=== PATIENT | female | born 1990 | race Caucasian/White ===

== ENCOUNTER → 2016-06-05 | Outpatient (CLI) | payer OTHER ==
[~2016-06-05] MED LIST: IBUP-232 PO
== END ==
LOC: CLAB 07:03
PROVIDERS: ATTEND Obstetrics & Gynecology
DX: Z34.83 Encounter for supervision of other normal pregnancy, third trimester (principal)
CPT/HCPCS: 36415; 86850; 86900; 86901; 96372; J2790; 90384

== ENCOUNTER 2016-07-22 12:43 | Emergency (ER) | payer OTHER ==
--- NOTE | 2016-07-22 14:04 | PD ---
HPI Chief Complaint Leakage of fluid Date Seen: Jul 22, 2016 Travel History International Travel<30 Days: No Contact w/Intl Traveler<30Days: No Known Affected Area: No History of Present Illness HPI G1 at 35w 1d presents with c/o LOF last night. Reports fluid as clear. Denies ctxs/VB. Reports good FM. Denies problems this . Para: 0 : 1 History Past Medical History Medical History: Denies Significant Hx Past Surgical History Surgical History: No Previous Surgery Family History Family History: Negative Social History Alcohol Use: No Tobacco Use: No Substance Abuse: No Allergies-Medications (Allergen,Severity, Reaction): Coded Allergies: No Known Allergies (Unverified , 07/22/16) Comments NKDA Physical Exam Narrative GENERAL: Well-nourished, well-developed patient. SKIN: Warm and dry. HEAD: Normocephalic and atraumatic. EYES: No scleral icterus. No injection or drainage. ENT: No nasal drainage noted. Mucous membranes pink. Airway patent. NECK: Supple, trachea midline. No JVD. CARDIOVASCULAR: Regular rate and rhythm without murmurs, gallops, or rubs. RESPIRATORY: Breath sounds equal bilaterally. No accessory muscle use. BREASTS: Bilateral exam showed no masses , no retractions, no nipple discharge. ABDOMEN/GI: Abdomen soft, non-tender, bowel sounds present, no rebound, no guarding Gravid to [-] weeks size Fundal Height: [-] GENITOURINARY: External Genitalia: intact and normal in appearance BUS glands: [-] Cervix: [-] Dilatation: [1cm int, 2 cm ext] Effacement: [50] Station: [3] Presentation: [-] Membranes: [intact or ruptured] Uterine Contractions: [none] FHT's: Category: [1] Baseline: [130s] Reactive: [reactive] Variability: [moderate] Decels: [none] EXTREMITIES: No cyanosis or edema. BACK: Nontender without obvious deformity. No CVA tenderness. NEUROLOGICAL: Awake and alert. Motor and sensory grossly within normal limits. Five out of 5 muscle strength in all muscle groups. Normal speech. Data Data Vital Signs Reviewed: Yes Orders UA- large LE, negative for blood/nitrites Urinalysis - C+S If Indicated (07/22/16 13:46) Labs AmniSure negative per RN MDM Interpretation(s) IUP at 35w 1d Plan Will d/c home. Labor precautions given. Keep f/u with OB provider as scheduled. Disposition: 01 DISCHARGE HOME Condition: Good Gayle Fairchild MD Jul 22, 2016 14:04
[2016-07-22 14:26] LABS: BACTERIA, URINE RARE /hpf; BLOOD, URINE NEG (NEG); COMMENT (UR) CULT NOT INDICATED; CULTURE IF INDICATED CULT NOT INDICATED; GLUCOSE,URINE NEG (NEG); KETONE, URINE NEG (NEG); MUCUS URINE FEW /lpf (OCC); NITRITE,URINE NEG (NEG); PH, URINE 6.5 (5.0-8.5); SQUAMOUS EPITHELIAL CELL URINE 7 /hpf (0-5); URINE COLOR YELLOW (YELLW/STRAW)
--- NOTE | 2016-07-22 16:21 | PD ---
HPI Travel History International Travel<30 Days: No Contact w/Intl Traveler<30Days: No Known Affected Area: No History of Present Illness HPI G1 at 35w 1d presents with c/o LOF last night. Reports fluid as clear. Denies ctxs/VB. Reports good FM. Denies problems this . History Past Medical History Medical History: Denies Significant Hx Past Surgical History Surgical History: No Previous Surgery Family History Family History: Negative Social History Alcohol Use: No Tobacco Use: No Substance Abuse: No Allergies-Medications (Allergen,Severity, Reaction): Coded Allergies: No Known Allergies (Unverified , 07/22/16) Physical Exam Narrative GENERAL: Well-nourished, well-developed patient. SKIN: Warm and dry. HEAD: Normocephalic and atraumatic. EYES: No scleral icterus. No injection or drainage. ENT: No nasal drainage noted. Mucous membranes pink. Airway patent. NECK: Supple, trachea midline. No JVD. CARDIOVASCULAR: Regular rate and rhythm without murmurs, gallops, or rubs. RESPIRATORY: Breath sounds equal bilaterally. No accessory muscle use. BREASTS: Bilateral exam showed no masses , no retractions, no nipple discharge. ABDOMEN/GI: Abdomen soft, non-tender, bowel sounds present, no rebound, no guarding Gravid to [-] weeks size Fundal Height: [-] GENITOURINARY: External Genitalia: intact and normal in appearance BUS glands: [-] Cervix: [-] Dilatation: [1 int/2 ext] Effacement: [50] Station: [3] Presentation: [-] Membranes: [intact or ruptured] Uterine Contractions: [-] FHT's: Category: [1] Baseline: [130s] Reactive: [reactive] Variability: [moderate] Decels: [none] EXTREMITIES: No cyanosis or edema. BACK: Nontender without obvious deformity. No CVA tenderness. NEUROLOGICAL: Awake and alert. Motor and sensory grossly within normal limits. Five out of 5 muscle strength in all muscle groups. Normal speech. Data Data Orders Urinalysis - C+S If Indicated (07/22/16 13:46) Labs Laboratory Tests Test 07/22/16 13:16 Urine Color YELLOW Urine Turbidity HAZY Urine pH 6.5 Urine Specific [place] 1.011 Urine Protein NEG Urine Glucose (UA) NEG Urine Ketones NEG Urine Occult Blood NEG Urine Nitrite NEG Urine Bilirubin NEG Urine Urobilinogen LESS THAN 2.0 Urine Leukocyte Esterase LARGE Urine RBC 2 Urine WBC 7 Urine Squamous Epithelial 7 Cells Urine Bacteria RARE Urine Mucus FEW Microscopic Urinalysis Comment CULT NOT INDICATED MDM Interpretation(s) IUP at 35w 1d Plan Will d/c home with labor precautions. Keep f/u with OB provider. Diagnosis Diagnosis: Primary Impression: 35 weeks gestation of Additional Impressions: No leakage of amniotic fluid into vagina False labor before 37 completed weeks of gestation Disposition: 01 DISCHARGE HOME Condition: Good Patient Instructions: General Instructions, at 35 to 38 Weeks (ED) Departure Forms: Tests/Procedures Gayle Fairchild MD Jul 22, 2016 16:21
== END 2016-07-22 15:15 | disposition home or self-care (01) ==
LOC: HOBED 12:43
DX: O47.03 False labor before 37 completed weeks of gestation, third trimester (principal); Z3A.35 35 weeks gestation of pregnancy
CPT/HCPCS: 59025; 81001; 84112

== ENCOUNTER 2016-07-29 20:40 | Inpatient (IN) | payer OTHER ==
--- NOTE | 2016-07-29 21:49 | PD ---
HPI Chief Complaint yellow discharge, low back pain, and decreased movement Date Seen: Jul 29, 2016 Time Seen: 21:30 Travel History International Travel<30 Days: No Contact w/Intl Traveler<30Days: No Known Affected Area: No History of Present Illness HPI Pt is a 25 y/o G1 with IUP at 36.1 weeks who presents with c/o yellowish watery discharge since this am, enough to get underwear wet, but no large gushes. Also c/o lower back pain (constant, 3/10) with intermittent radiation to right side of abdomen. Pt also noted decreased movement today. pt has felt some fluttery movement, but less active than normal. Pt unsure if her ab pain is contractions. She denies vb. Para: 0 : 1 History Past Medical History Medical History: Denies Significant Hx Obstetric History Obstetric History G1 Past Surgical History Narrative Surgical LEEP Family History Family History: Negative Social History Alcohol Use: No Tobacco Use: No Substance Abuse: No Allergies-Medications (Allergen,Severity, Reaction): Coded Allergies: No Known Allergies (Unverified , 07/22/16) Narrative Medication PNV Review of Systems General / Constitutional: No: Fever, Weight Gain, Weight Loss, Chills, Other Eyes: No: Diploplia, Blurred Vision, Visual changes, Pain, Photophobia, Other HENT: No: Headaches, Vertigo, Dental Difficulties, Lightheadedness, Other Cardiovascular: No: Irregular Rhythm, Chest Pain or Discomfort, Palpitations, Tachycardia, Syncope, Varicosities, Edema, Cyanosis, Other Respiratory: No: Cough, Short of Breath, Wheezing, Other Gastrointestinal: No: Nausea, Vomiting, Diarrhea, Abdominal Pain, Hematemesis, Hematochezia, Constipation, Changes in Bowel Habits, Indigestion, Loss of Appetite, Other Genitourinary: No: Urgency, Frequency, Dysuria, Nocturia, Hematuria, Decreased Urinary Output, Oliguria, Hesitancy, Dribbling, Incontinence, Pelvic Pain, Dyspareunia, Discharge, Menorrhagia, Vaginal Bleeding, Other Musculoskeletal: No: Limited ROM, Weakness, Cramping, Edema, Pain, Other Neurologic: No: Weakness, Dizziness, Syncope, Focal Abnormalities, Coordination Problem, Headache, Slurred Speech, Seizures, Other Psychiatric: No: Anxiety, Depression, Suicidal Ideations, Disorder of Thought, Mood Disorder, Substance Abuse, Homicidal Ideation, Other Endocrine: No: Heat Intolerance, Cold Intolerance, Polydipsia, Polyuria, Other Hematologic/Lymphatic: No Easy Bruising, No Lymph Node Enlargement, No Other Physical Exam 133/88, 83, 18, 98.0 Narrative GENERAL: Well-nourished, well-developed patient. SKIN: Warm and dry. HEAD: Normocephalic and atraumatic. EYES: No scleral icterus. No injection or drainage. ENT: No nasal drainage noted. Mucous membranes pink. Airway patent. NECK: Supple, trachea midline. No JVD. CARDIOVASCULAR: Regular rate and rhythm without murmurs, gallops, or rubs. RESPIRATORY: Breath sounds equal bilaterally. No accessory muscle use. ABDOMEN/GI: Abdomen soft, non-tender, bowel sounds present, no rebound, no guarding Gravid GENITOURINARY: External Genitalia: intact and normal in appearance BUS glands: [wnl] Cervix: mid-position Dilatation: 4 Effacement: 90 Station: -1 Presentation: [facility] Membranes: intact (amnisure negative) Uterine Contractions: irritability FHT's: Category: 1 Baseline: 120 Reactive: yes Variability: mod Decels: no EXTREMITIES: No cyanosis or edema. BACK: Nontender without obvious deformity. No CVA tenderness. NEUROLOGICAL: Awake and alert. Motor and sensory grossly within normal limits. Five out of 5 muscle strength in all muscle groups. Normal speech. Data Data Vital Signs Reviewed: Yes Orders Vital Signs (Adult) .ON ADMISSION (07/29/16 21:26) ^ Labor Status (07/29/16 21:26) Wet Prep Profile (07/29/16 21:26) MDM Medical Record Reviewed: Yes Narrative Course / MDM 25 y/o G1 with IUP at 36.1 weeks with discharge, back/side pain, and decreased FM 1. wet prep collected, amnisure negative 2. cat 1 tracing 3. rule out labor--recheck cervix in 2 hours repeat cervical exam: /-1, BBOW admit for expectant management GBS unknown, penicillin secondary to prematurity Dr. Burkett notified of admission Alex Andrade MD Jul 29, 2016 21:49
[2016-07-29] MEDS ORDERED: LACTATED RINGER'S 1000 ML INJ 1,000 ML IV PRN (22:58)
[2016-07-29] MEDS ORDERED: OXYTOCIN 30 UNITS-500ML PREMIX 500 ML IV ONE (23:00)
[2016-07-29] MEDS ORDERED: ONDANSETRON HCL 4 MG/2 ML VIAL IV PRN (23:00)
[2016-07-29] MEDS ORDERED: LIDOCAINE HCL 1% 50 ML VIAL INFIL PRN (23:00)
[2016-07-29] MEDS ORDERED: CITRIC ACID-SODIUM CITRATE LIQ 30 ML UDC PO SCH (23:00)
[2016-07-29] MEDS ORDERED: PENICILLIN G POTASSIUM INJ 5,000,000 UNITS in SODIUM CHLORIDE 0.9% INJ 100 ML IV ONE (23:00)
[2016-07-29] MEDS ORDERED: LIDOCAINE HCL 1% 50 ML VIAL I-DERMAL PRN (23:00)
[2016-07-29] MEDS ORDERED: MINERAL OIL 10 ML VIAL TOPICAL PRN (23:00)
[2016-07-29] MEDS ORDERED: SODIUM CHLORID 0.9% 500 ML INJ 500 ML IV PRN (23:00)
--- NOTE | 2016-07-29 23:03 | HHI.HP ---
History & Physical H&P HPI Chief Complaint yellow discharge, low back pain, and decreased movement Date Seen: Jul 29, 2016 Time Seen: 21:30 Travel History International Travel<30 Days: No Contact w/Intl Traveler<30Days: No Known Affected Area: No History of Present Illness HPI Pt is a 25 y/o G1 with IUP at 36.1 weeks who presents with c/o yellowish watery discharge since this am, enough to get underwear wet, but no large gushes. Also c/o lower back pain (constant, 3/10) with intermittent radiation to right side of abdomen. Pt also noted decreased movement today. pt has felt some fluttery movement, but less active than normal. Pt unsure if her ab pain is contractions. She denies vb. Para: 0 : 1 History (Limited) History Past Medical History Medical History: Denies Significant Hx Obstetric History Obstetric History G1 Past Surgical History Narrative Surgical LEEP Family History Family History: Negative Social History Alcohol Use: No Tobacco Use: No Substance Abuse: No Allergies-Medications Allergies-Medications (Allergen,Severity, Reaction): Coded Allergies: No Known Allergies (Unverified , 07/22/16) Narrative Medication PNV ROS Review of Systems General / Constitutional: No: Fever, Weight Gain, Weight Loss, Chills, Other Eyes: No: Diploplia, Blurred Vision, Visual changes, Pain, Photophobia, Other HENT: No: Headaches, Vertigo, Dental Difficulties, Lightheadedness, Other Cardiovascular: No: Irregular Rhythm, Chest Pain or Discomfort, Palpitations, Tachycardia, Syncope, Varicosities, Edema, Cyanosis, Other Respiratory: No: Cough, Short of Breath, Wheezing, Other Gastrointestinal: No: Nausea, Vomiting, Diarrhea, Abdominal Pain, Hematemesis, Hematochezia, Constipation, Changes in Bowel Habits, Indigestion, Loss of Appetite, Other Genitourinary: No: Urgency, Frequency, Dysuria, Nocturia, Hematuria, Decreased Urinary Output, Oliguria, Hesitancy, Dribbling, Incontinence, Pelvic Pain, Dyspareunia, Discharge, Menorrhagia, Vaginal Bleeding, Other Musculoskeletal: No: Limited ROM, Weakness, Cramping, Edema, Pain, Other Neurologic: No: Weakness, Dizziness, Syncope, Focal Abnormalities, Coordination Problem, Headache, Slurred Speech, Seizures, Other Psychiatric: No: Anxiety, Depression, Suicidal Ideations, Disorder of Thought, Mood Disorder, Substance Abuse, Homicidal Ideation, Other Endocrine: No: Heat Intolerance, Cold Intolerance, Polydipsia, Polyuria, Other Hematologic/Lymphatic: No Easy Bruising, No Lymph Node Enlargement, No Other Physical Exam Physical Exam 133/88, 83, 18, 98.0 Narrative GENERAL: Well-nourished, well-developed patient. SKIN: Warm and dry. HEAD: Normocephalic and atraumatic. EYES: No scleral icterus. No injection or drainage. ENT: No nasal drainage noted. Mucous membranes pink. Airway patent. NECK: Supple, trachea midline. No JVD. CARDIOVASCULAR: Regular rate and rhythm without murmurs, gallops, or rubs. RESPIRATORY: Breath sounds equal bilaterally. No accessory muscle use. ABDOMEN/GI: Abdomen soft, non-tender, bowel sounds present, no rebound, no guarding Gravid GENITOURINARY: External Genitalia: intact and normal in appearance BUS glands: [wnl] Cervix: mid-position Dilatation: 4 Effacement: 90 Station: -1 Presentation: [facility] Membranes: intact (amnisure negative) Uterine Contractions: irritability FHT's: Category: 1 Baseline: 120 Reactive: yes Variability: mod Decels: no EXTREMITIES: No cyanosis or edema. BACK: Nontender without obvious deformity. No CVA tenderness. NEUROLOGICAL: Awake and alert. Motor and sensory grossly within normal limits. Five out of 5 muscle strength in all muscle groups. Normal speech. Data Data Data Vital Signs Reviewed: Yes Orders Vital Signs (Adult) .ON ADMISSION (07/29/16 21:26) ^ Labor Status (07/29/16 21:26) Wet Prep Profile (07/29/16 21:26) [facility] Medical Record Reviewed: Yes Narrative Course / MDM 25 y/o G1 with IUP at 36.1 weeks with discharge, back/side pain, and decreased FM 1. wet prep collected, amnisure negative 2. cat 1 tracing 3. rule out labor--recheck cervix in 2 hours repeat cervical exam: /-1, BBOW admit for expectant management GBS unknown, penicillin secondary to prematurity Dr. Burkett notified of admission Alex Andrade MD Jul 29, 2016 21:49 Alex Andrade MD Jul 29, 2016 23:03
[2016-07-29] MEDS ORDERED: SODIUM CHLOR 0.9% 1000 ML INJ 1,000 ML IV PRN (23:18)
[2016-07-29 23:53] VITALS: BP 132/86; PULSE 68; RESP 18; TEMP 98.7
[2016-07-30] VITALS (16 sets, daily range): BP systolic 117–137; BP diastolic 75–85; PULSE 71–83; RESP 16–20; TEMP 97.6–98.7
[2016-07-30 00:13] LABS: AUTOMATED NEUTROPHIL # 8.3 TH/MM3 (1.8-7.7); BASOPHIL % 0.4 % (0.0-2.0); EOSINOPHIL # 0.2 TH/MM3 (0-0.4); EOSINOPHIL % 1.8 % (0.0-4.0); HEMATOCRIT 33.5 % (35.0-46.0); HEMO FLAGS DIFF FINAL; LYMPH % 17.3 % (9.0-44.0); MEAN CELL VOLUME 89.3 FL (80.0-100.0); MEAN CORPUSCULAR HEMOGLOBIN 30.9 PG (27.0-34.0); MEAN CORPUSCULAR HGB CONC 34.6 % (32.0-36.0); MONO % 7.1 % (0.0-8.0); NEUT % 73.4 % (16.0-70.0); PLATELET COUNT 224 TH/MM3 (150-450); RED BLOOD COUNT 3.75 MIL/MM3 (4.00-5.30); RED CELL DISTRIBUTION WIDTH 13.1 % (11.6-17.2); WHITE BLOOD COUNT 11.4 TH/MM3 (4.0-11.0)
[2016-07-30] MEDS: LACTATED RINGER'S 1000 ML INJ 1,000 ML IV SCH (00:33)
[2016-07-30] MEDS: PENICILLIN G POTASSIUM INJ 2,500,000 UNITS in SODIUM CHLORIDE 0.9% INJ 100 ML IV SCH ×2 (05:18→08:33)
--- NOTE | 2016-07-30 07:47 | PD.LABORPN ---
Subjective Subjective comfortable with no epidural Objective Vital Signs Vital Signs Date Time Temp Pulse Resp B/P Pulse Ox O2 Delivery O2 Flow Rate FiO2 07/30/16 07:20 72 117/75 07/30/16 07:16 97.6 18 07/30/16 06:30 16 07/30/16 05:30 16 07/30/16 05:30 98.4 07/30/16 05:19 72 07/30/16 05:19 117/84 07/30/16 04:30 16 07/30/16 03:30 16 07/30/16 02:19 16 07/30/16 01:15 18 07/29/16 23:53 98.7 68 18 132/86 Objective 7/100/0 category 1 Assessment/Plan Assessment and Plan EFW 6 pounds pelvis clinically adequate anticipate Bella Martinez MD Jul 30, 2016 07:47
[2016-07-30] MEDS ORDERED: OXYTOCIN 30 UNITS-500ML PREMIX 500 ML ONE (07:52)
[2016-07-30 09:41] LABS: BLOOD, URINE MOD (NEG); COMMENT (UR) CULTURE INDICATED; CULTURE IF INDICATED CULTURE INDICATED; GLUCOSE,URINE NEG (NEG); KETONE, URINE 10 mg/dL (NEG); MUCUS URINE FEW /lpf (OCC); NITRITE,URINE NEG (NEG); SQUAMOUS EPITHELIAL CELL URINE 4 /hpf (0-5)
[2016-07-30 09:42] LABS: URINE COLOR LIGHT-RED (YELLW/STRAW)
[2016-07-30 09:50] LABS: AMPHETAMINE, URINE NEG (NEG); BARBITURATES, URINE NEG (NEG); COCAINE, URINE NEG (NEG)
[2016-07-30 09:50] LABS: RAPID PLASMA REAGIN SCREEN NON-REACTIVE (NON-REACTVE)
[2016-07-30] MEDS ORDERED: OXYTOCIN 30 UNITS/NS 500ML PREMIX IV SCH (10:45)
[2016-07-30] MEDS ORDERED: fentaNYL 2MCG-BUPIV 0.125% INJ 100 ML ONE (11:05)
[2016-07-30] MEDS ORDERED: ePHEDrine/NS 25 MG/5 ML SYR ONE (11:06)
--- NOTE | 2016-07-30 11:52 | PD.OB.DELI ---
Anesthesia: None Episiotomy: None Vaginal Delivery: Normal Presentation: Occiput anterior Nuchal Cord: None Delayed cord clamping (45 sec): Yes Infant: Male One Minute : 9 Five Minute : 9 Weight: 5 11 Care: Suctioned, Spontaneous crying Placenta: Spontaneous delivery Laceration: 2 deg Repair: Chromic Bella Christine MD Jul 30, 2016 11:52
--- NOTE | 2016-07-31 07:22 | HHI.OB ---
Subjective Post Day: 1 Remarks complaining of constipation otherwise doing great nursing Objective Vitals/I&O Vital Signs Date Time Temp Pulse Resp B/P Pulse Ox O2 Delivery O2 Flow Rate FiO2 07/30/16 20:00 83 118/80 07/30/16 20:00 98.1 18 07/30/16 15:36 98.7 78 20 129/78 07/30/16 14:16 72 125/75 07/30/16 13:36 98.6 18 07/30/16 13:31 76 137/83 07/30/16 08:50 71 134/85 07/30/16 08:27 76 133/83 Objective Remarks GENERAL: Well-nourished, well-developed patient. CARDIOVASCULAR: Regular rate and rhythm without murmurs, gallops, or rubs. RESPIRATORY: Breath sounds equal bilaterally. No accessory muscle use. ABDOMEN/GI: Abdomen soft, non-tender. Fundus: Firm, non-tender at umbilicus. GENITOURINARY: Light to moderate bleeding. EXTREMITIES: No cyanosis or edema, non-tender, without signs of DVT. Medications and IVs Current Medications Medications (Trade) Dose Ordered Sig/Mayda Route Start Time Stop Time Status Last Admin Lactated Ringer's 1,000 ml @ 125 mls/hr Q8H IV 07/29/16 22:58 07/30/16 00:33 Lactated Ringer's 1,000 ml @ 3,000 mls/hr Q20M PRN IV 07/29/16 22:58 Sodium Chloride 500 ml @ 1,000 mls/hr ONCE PRN IV 07/29/16 23:00 (NS 1000 ml Inj) 1,000 ml @ 100 mls/hr Q10H PRN IV 07/29/16 23:18 (Zofran Inj) 4 mg Q6H PRN IV 07/29/16 23:00 (fentaNYL INJ) 50 mcg Q1H PRN IV PUSH 07/29/16 23:00 Fentanyl Citrate 100 mcg 100 mcg Q1H PRN IV PUSH 07/29/16 23:00 (Pfizerpen-G Inj/ NS Inj) 100 ml @ 200 mls/hr Q4H IV 07/30/16 03:00 07/30/16 08:33 Mineral Oil 10 ml 10 ml UNSCH PRN TOPICAL 07/29/16 23:00 (Pitocin 30 Units-NS 500 ml Premix) 500 ml @ 0 mls/hr TITRATE IV 07/30/16 10:45 07/30/16 10:58 Assessment/Plan Assessment and Plan healthy PPD1 anticipate home in am Bella Vera MD Jul 31, 2016 07:22
[2016-07-31 08:50] VITALS: BP 130/73; PULSE 84; RESP 16; TEMP 98.3
[2016-07-31] MEDS: DOCUSATE SODIUM 100 MG CAP PO SCH (21:15)
[2016-08-01] MEDS: LACTATED RINGER'S 1000 ML INJ 1,000 ML IV SCH (06:58)
[2016-08-01] MEDS: PENICILLIN G POTASSIUM INJ 2,500,000 UNITS in SODIUM CHLORIDE 0.9% INJ 100 ML IV SCH ×2 (07:00→11:00)
--- NOTE | 2016-08-01 08:04 | HHI.OB ---
Subjective Post Day: 2 Remarks no complaints Objective Vitals/I&O Vital Signs Date Time Temp Pulse Resp B/P Pulse Ox O2 Delivery O2 Flow Rate FiO2 07/31/16 08:50 98.3 84 16 130/73 Objective Remarks GENERAL: Well-nourished, well-developed patient. CARDIOVASCULAR: Regular rate and rhythm without murmurs, gallops, or rubs. RESPIRATORY: Breath sounds equal bilaterally. No accessory muscle use. ABDOMEN/GI: Abdomen soft, non-tender. Fundus: Firm, non-tender at umbilicus. GENITOURINARY: Light to moderate bleeding. EXTREMITIES: No cyanosis or edema, non-tender, without signs of DVT. Medications and IVs Current Medications Medications (Trade) Dose Ordered Sig/Mayda Route Start Time Stop Time Status Last Admin Lactated Ringer's 1,000 ml @ 125 mls/hr Q8H IV 07/29/16 22:58 07/30/16 00:33 Lactated Ringer's 1,000 ml @ 3,000 mls/hr Q20M PRN IV 07/29/16 22:58 Sodium Chloride 500 ml @ 1,000 mls/hr ONCE PRN IV 07/29/16 23:00 (NS 1000 ml Inj) 1,000 ml @ 100 mls/hr Q10H PRN IV 07/29/16 23:18 (Zofran Inj) 4 mg Q6H PRN IV 07/29/16 23:00 (fentaNYL INJ) 50 mcg Q1H PRN IV PUSH 07/29/16 23:00 Fentanyl Citrate 100 mcg 100 mcg Q1H PRN IV PUSH 07/29/16 23:00 (Pfizerpen-G Inj/ NS Inj) 100 ml @ 200 mls/hr Q4H IV 07/30/16 03:00 07/30/16 08:33 Mineral Oil 10 ml 10 ml UNSCH PRN TOPICAL 07/29/16 23:00 (Pitocin 30 Units-NS 500 ml Premix) 500 ml @ 0 mls/hr TITRATE IV 07/30/16 10:45 07/30/16 10:58 (Colace) 100 mg BID PO 07/31/16 09:00 07/31/16 21:15 Assessment/Plan Assessment and Plan healthy PPD2 anticipate home in am Discharge Planning routine Attending Attestation pt seen by Melissa Chau MD 9, 2017 08:04
[2016-08-01] MEDS ORDERED: IBUP-232 PO (08:06)
--- NOTE | 2016-08-01 08:06 | HHI.DCPOC ---
Discharge Care Plan Your Health Problems Are: Pelvic pain Report Symptoms to Your Doctor -Temperate above 100.5 degrees -Redness, of incision or excessive or foul smelling drainage -Unusual pain or calf pain -Increased vaginal bleeding -Painful or difficulty urinating -Feelings of extreme sadness or anxiety after 2 weeks Goals to Promote Your Health * To prevent worsening of your condition and complications * To maintain your health at the optimal level Directions to Meet Your Goals Take your medications as prescribed Follow your dietary instruction Follow activity as directed Ensure plenty of rest for recovery Drink fluids for hydration Keep your appointments as scheduled Take your immunizations and boosters as scheduled If your symptoms worsen call your PCP, if no PCP go to Urgent Care Center or Emergency Room Smoking is Dangerous to Your Health. Avoid second hand smoke Call the 24-hour crisis hotline for domestic abuse at Melissa Burkett MD Aug 01, 2016 08:06
[2016-08-01] MEDS ORDERED: DIPHTH/TETANUS/ACEL PERTUSSIS (BOOSTER) 0.5 ML VIAL/PFS IM ONE (08:30)
[2016-08-01] MEDS: DOCUSATE SODIUM 100 MG CAP PO SCH (09:00)
[2016-08-01 09:20] VITALS: BP 122/79; PULSE 81; RESP 16; TEMP 97.8
[2016-08-02 13:00] LABS: ECSTASY (MDMA) UR NEG (NEG); HEROIN (6-ACETYLMORPHINE) UR NEG (NEG); OBMETHADONE UR NEG (NEG); PHENCYCLIDINE URINE NEG (NEG)
[2016-08-02 13:01] LABS: BATH SALTS (MDPV) UR NEG (NEG); K2 SPICE UR NEG (NEG); OXYCODONE (PERCODAN) NEG (NEG)
== END 2016-08-01 11:15 | disposition home or self-care (01) | DRG 775 ==
LOC: HOBED 20:40 → H2EB 23:06 → H1EA 07-30 15:15
PROVIDERS: ADMIT Obstetrics & Gynecology; ATTEND Obstetrics & Gynecology
PROC: 10E0XZZ Delivery of Products of Conception, External Approach (ICD-10-PCS; principal; 2016-07-30)
PROC: 0KQM0ZZ Repair Perineum Muscle, Open Approach (ICD-10-PCS; 2016-07-30)
DX: O60.14X0 Preterm labor third trimester with preterm delivery third trimester, not applicable or unspecified (principal); O70.1 Second degree perineal laceration during delivery; Z37.0 Single live birth; Z3A.36 36 weeks gestation of pregnancy
CPT/HCPCS: 80307; 81001; 84112; 85025; 85461; 86592; 86850; 86900; 86901; 87086; 87210; 90384; 90715; 99285; G0481; J2540; J2590; J2790; J7120